=== PATIENT | female | born 1945 | race African-American/Black ===

== ENCOUNTER 2017-08-19 10:42 | Emergency (ER) | payer OTHER ==
[~2017-08-19] VITALS: Ht 167.6 cm; Wt 104.3 kg
[2017-08-19] MEDS ORDERED: LEVOXYL88 MCG PO (10:52)
[2017-08-19] MEDS ORDERED: CARVEDILOL12.5 MG PO (10:52)
[2017-08-19] MEDS ORDERED: LISINOPRIL20 MG PO (10:53)
[2017-08-19] MEDS ORDERED: LOVASTATIN 20 M20 MG PO (10:53)
[2017-08-19] MEDS ORDERED: METFORMIN HCL500 MG PO (10:54)
[2017-08-19] MEDS ORDERED: CHILDREN'S ASPI81 M1 PO (10:54)
[2017-08-19 12:15] VITALS: BP 121/82
[2017-08-19] MEDS ORDERED: MUCINEX DM ER1 EAC1 PO (12:17)
[2017-08-19] MEDS ORDERED: ZPAK PO (12:17)
[2017-08-19] MEDS ORDERED: PROMETH-CODEIN 65 ML PO (12:17)
== END 2017-08-19 12:20 | disposition home or self-care (01) ==
LOC: ER 10:42
DX: J20.9 Acute bronchitis, unspecified (principal); F17.210 Nicotine dependence, cigarettes, uncomplicated